=== PATIENT | female | born 1935 | race Caucasian/White ===

== ENCOUNTER 2021-09-15 03:42 | Inpatient (IN) | payer MEDICARE, SELFPAY ==
[2021-09-15] VITALS (25 sets, daily range): BP systolic 70–157; BP diastolic 50–88; PULSE 60–95; RESP 16–20; TEMP 36.3–37.1; O2SAT 90–97; BMI 26.2
--- NOTE | 2021-09-15 | IR_ITS ---
APPROVED REPORT Patient Location: Inpatient Level Vial Grinder: SILVINO Mcdermott RT (R) PROCEDURES Left heart catheterization Left ventriculogram Selective coronary angiogram Intravascular ultrasound of the LAD Drug-eluting stent deployment to the proximal and mid LAD INDICATION Acute non-ST elevation myocardial infarction, Abnormal echocardiogram, Large anterior wall defect, Coronary artery disease, MLA 3.6 mm??? involving the LAD Informed consent was obtained prior to the procedure. COMPLICATIONS None Estimated Blood Loss: Less than 10 mls TECHNIQUE One percent lidocaine used to anesthetize the right anterior aspect of the wrist. The right radial artery was accessed via the Seldinger technique. A 6 [place] sheath was placed in the right radial artery. 2.5 mg of verapamil, 800 mcg of nitroglycerin, 1mg Lidocaine and 5000 U Heparin were given through the arterial sheath. A trap catheter was used to perform left heart catheterization left ventriculogram and selective coronary angiogram. Patient had a large anterior wall motion abnormality. Based on calcified angiographically indeterminate proximal to mid LAD stenosis accompanying the anterior wall defect with positive troponins I was concerned an occult lesion was present. Therapeutic heparin was administered giving a therapeutic ACT and the guide catheter was switched out for a 6 [place] JL3 guide catheter. This was placed in the left main artery followed by a Choice PT extra-support wire. Intravascular interrogation demonstrated calcification with eccentric plaque and an MLA of 3.6 mm???. Given this mid hemodynamic significance the FFR wire was removed. Patient was not a candidate for FFR based on her pacemaker the acute coronary syndrome and evidence of systolic heart failure all of which were excluded and the same 1 and for him to trial. The gold standard for this patient would be the IVUS catheter. A 2.5 x 22 mm resolute Davey stent was placed in the proximal to mid LAD and deployed at 24 rosalia. A 2.75 x 8 mm noncompliant balloon was deployed at 24 rosalia in an area which was not fully dilated. At this point intravascular ultrasound probe was advanced which demonstrated the entire stent was slightly undersized. A 3 mm x 20 mm noncompliant balloon was then placed in the proximal mid and distal segment of the above stent deployed at 24 rosalia further post dilating and reducing the stenosis. Excellent angiographic results were obtained. FELICIA-3 flow was present before and after the procedure. At the end of the procedure the apparatus was removed the sheath was removed and hemostasis was achieved using TR banding patient was transferred to the postop holding in stable condition ANGIOGRAPHIC RESULTS The left main artery Normal The left anterior descending artery Has a proximal to mid vessel angiographically ambiguous area which appeared to be at least 50%. The remaining LAD is widely patent The circumflex artery Nondominant and has diffuse multiple 30 and 40% stenosis The right coronary artery Dominant with mild diffuse 10 to 20% luminal irregularities The FRY ventriculogram reveals Dilated ventricle with anterior apical akinesis estimate ejection fraction 25% The left ventricular end-diastolic pressure 30 mmHg IMPRESSION Coronary disease as described above accompanied by large anterior apical regional wall motion abnormality Severe coronary artery disease involving the proximal to mid LAD as described above with an MLA of 3.6 mm??? followed by successful stenting reducing the lesion to less than 10% Mild to moderate disease throughout the circumflex artery PLAN 1. Dual antiplatelet therapy combined with Eliquis for the next 30 days th
--- NOTE | 2021-09-15 03:52 | PC.NURSE ---
PT WAS DIRECT ADMIT VIA PER STRETCHER PER PER EMS [facility] @ [phone]
[2021-09-15 05:37] LABS: Coronavirus 19, PCR Not Detected (NotDetected); Influenza A, PCR Not Detected (NotDetected); Influenza B, PCR Not Detected (NotDetected)
[2021-09-15 05:41] LABS: Basophils # 0.1 K/mm3 (0-0.2); Basophils % 0.8 % (0.1-2.0); Eosinophils # 0.1 K/mm3 (0.0-0.4); Eosinophils % 0.9 % (0.1-12.0); Hematocrit 37.1 % (37.0-47.0); Hemoglobin 12.1 g/dL (12.2-16.2); Lymphocytes # 0.7 K/mm3 (0.7-4.5); Lymphocytes % 7.5 % (10-50); Mean Corpuscular HGB Conc 32.5 g/dL (31.8-35.4); Mean Corpuscular Hemoglobin 29.7 pg (27.0-31.2); Mean Corpuscular Volume 91.3 fl (81-99); Mean Platelet Volume 7.8 fl (7.4-10.4); Monocytes # 0.3 K/mm3 (0.1-1.0); Monocytes % 3.4 % (1.7-9.3); Neutrophils # 8.5 K/mm3 (1.8-7.8); Neutrophils % 87.3 % (37.0-80.0); Platelet Count 182 K/mm3 (142-424); Red Blood Count 4.07 M/mm3 (4.20-5.40); White Blood Count 9.7 K/mm3 (4.8-10.8)
[2021-09-15 05:44] LABS: MANUAL DIFFERENTIAL MANUAL DIFFERENTIAL (MANUAL DIFF)
[2021-09-15 05:46] LABS: Chloride 107 mmol/L (98-107); Sodium 133 mmol/L (136-145)
[2021-09-15 05:47] LABS: Potassium 3.7 mmoL/L (3.5-5.1)
[2021-09-15 05:49] LABS: Blood Urea Nitrogen 11 mg/dl (7-17); Creatinine Clearance Estimated 42 mL/min (50-200); Estimated Glomerular Filt Rate 79 ml/min (>60); GFR (African American) 96 ML/MIN (>60)
[2021-09-15 05:50] LABS: Anion Gap 2.7 mEq/L (5-15); Calcium 9.3 mg/dl (8.4-10.2); Carbon Dioxide 27 mmol/L (22.0-30.0); Glucose 119 mg/dl (74-100)
[2021-09-15 06:02] LABS: Troponin I 0.19 ng/ml (0.00-0.034)
--- NOTE | 2021-09-15 06:08 | PC.NURSE ---
Patient unable to remember names of medications, she states her son is able to bring list of meds.
[2021-09-15 06:50] LABS: Lymphocytes % 11 % (10-50); Monocytes % 4 % (2-9); Neutrophils % 85 % (42-76); Total Cells Counted 100
[2021-09-15 06:51] LABS: Platelet Estimate Normal; RBC Morphology Normal
--- NOTE | 2021-09-15 07:32 | HMH.PHAVTE ---
[facility] VTE Monitoring - Patient Demographics Admission date: 09/15/21 Report Date: 09/15/21 Time: 07:33 Allergies/Adverse Reactions: Patient Allergies No Known Drug Allergies Allergy (Verified 09/15/21 04:22) Height: 1.6 m Weight: 67.188 kg - VTE Risk Labs: VTE Related Lab Results Hgb 12.1 g/dL (12.2-16.2) L 09/15/21 05:30 Hct 37.1 % (37.0-47.0) 09/15/21 05:30 Plt Count 182 K/mm3 (142-424) 09/15/21 05:30 BUN 11 mg/dl (7-17) 09/15/21 05:30 Creatinine 0.70 mg/dl (0.52-1.04) 09/15/21 05:30 Estimated Creat Clear 42 mL/min (50-200) 09/15/21 05:30 Was VTE Risk Assessment Performed: Yes VTE Score: 2 VTE Risk Level: Very Low Risk Clinical Trial Participant: No - Prophylaxis VTE Prophylaxis Ordered?: Yes Types of VTE Prophylaxis: TEDS Knee High Location of Applied Device: Bilateral Lower Extremeties
--- NOTE | 2021-09-15 08:00 | CA_ITS ---
APPROVED REPORT EXAM: Comprehensive 2D, Doppler, and color-flow Echocardiogram Lead Pony Rider: Tawana Ceja RDCS Ht: 5 ft 3 in Wt: 148lbs BSA: 1.70 BP: 135/85 mmHg Indications: NSTEMI 2D Dimensions LVDd 1.59 cm F: 3.9 - 5.3 LA Volume 69.40 mL LA Volume Index 40.82 mL/m2 (M/F) 16-34 M-Mode Dimensions RVDd 2.25 cm (0.9-2.6) LA Diam 4.27 cm (1.9-4.0) LVDd 5.50 cm (3.5-5.7) Ao Diam 3.30 cm (2.0-3.7) LVDs 3.69 cm (3.5-5.7) IVSd 0.54 cm (0.6-1.1) PWd 0.60 cm (0.6-1.1) EF (Teich) 60.80% FS 32.90% EDV (Teich) 147.40 mL ESV (Teich) 57.80 mL LV Diastology E Decel Time 220.00 (160-240 msec) E/A Ratio 2.5 MED E' 4.10 (< 7 cm/sec) E'/MED E' Ratio 22.95 (>14) LAT E' 6.30 (<10 cm/sec) E/LAT E' Ratio 14.94 (>14) Mitral Valve MV E Max Dudley. 94.00 (40-130 cm/s) MV A Velocity 37.00 (40-130 cm/s) E/A Ratio 2.54 MV Decel. Time 220.00 (160-240 ms) MV PHT 64.00 ms Left Ventricle Technically difficult study because of the patient factors and poor acoustic windows. Left atrium is mildly enlarged, left ventricle is normal size, mild concentric left ventricular hypertrophy, estimated ejection fraction approximately 35%, there is moderate hypokinesis involving mid to distal septum, anterior and anterior apical wall. Diastolic parameters are inconclusive. Right Ventricle Right atrium and right ventricle are mildly enlarged with normal contractility. Aortic Valve Aortic valve is minimally thickened and fibrosed there is no aortic stenosis, there is trace aortic insufficiency. Mitral Valve Mitral valve leaflets are minimally thickened, there is mild mitral regurgitation. Tricuspid Valve Tricuspid valve leaflets are not well visualized, there is mild tricuspid regurgitation. Tricuspid rotation jet velocity is inadequate for calculation of the right ventricular systolic pressure. Pulmonic Valve Pulmonic valve is poorly visualized. Great Vessels Aortic root is normal size. Inferior vena cava is poorly visualized. Pericardium No significant pericardial effusion noted. Conclusion 1. Technically difficult study because of the patient factors and poor acoustic windows. 2. Biatrial enlargement, normal left ventricular size, mild concentric left ventricular hypertrophy, estimated ejection fraction 35% with segmental wall motion abnormality described above, diastolic parameters are inconclusive. 3. Trace aortic, mild mitral and tricuspid regurgitation. 4. No significant pericardial effusion. 5. Inferior vena cava is poorly visualized. Electronically signed by : Vinicius Medina MD 09/15/2021 13:17:28
--- NOTE | 2021-09-15 09:09 | HMH.HP ---
*Admission Date: 09/15/21 *Chief complaint: chest pain *History of present illness: This is an 86-year-old white female who presented to the emergency department at [facility]. She went to the hospital because of shortness of breath. Most of her history comes from her son who stays with her. The patient and her son state that she became profoundly short of breath through the night last night which was very unusual for her. He states that it was severe and she was kind of gasping to breathe. The patient states that she did not feel well and exertion worsen her symptoms. Nothing was really helping to improve her shortness of breath. It was associated with a little bit of anxiety. She denies any lower extremity edema. She denies any chest pain or pressure. She denies any fever, chills, nausea, vomiting, diarrhea, PND or orthopnea. The patient was transported to [facility] where she was found to have an elevated troponin. Dr. Sanchez was contacted and the patient was transferred here to [facility] for further evaluation and treatment of her elevated troponin. Of note she does see Dr. Whipple in [facility] for her cardiology care. She has known paroxysmal atrial fibrillation and recently underwent cardioversion. The patient is in sinus rhythm. She does take Eliquis for long-term anticoagulation. She denies a history of coronary disease. above per cardiology service When seen on rounds this morning the patient was having no active chest pain or dyspnea. She relayed having a restless night. The cardiology service has made plans to take her to the Plant [facility]/Shift Supervisor for further evaluation later today [facility] History Medical History: Denies:: Cancer, Diabetes Mellitus Type 1, Diabetes Mellitus Type 2, MRSA *Have you ever received a pneumonia vaccine?: Yes *Have you received a flu vaccine this season?: Yes Other Medical History: Reports: Arthritis, Cataracts Laterality Cases: Bilateral: Cataract Other Surgeries: Yes: Hysterectomy-Partial Amputation: No Fractures: No - *Social History Last grade of school completed: 11th or 12th Smoking Status: Never smoker Alcohol Intake: never *Occupational Status:: retired Household Members: children *Travel in the last 8 weeks: None Family Hx:: No significant family history Review of Systems - Constitutional Reports fatigue, Reports lack of energy - Eyes Denies change in vision - ENT Denies abnormal hearing - *Cardiovascular Reports chest pain, Reports chest pain at rest, Reports chest pain with activity, Reports shortness of breath - *Respiratory Reports shortness of breath, Denies cough - *Gastrointestinal Denies abdominal pain - *Genitourinary Denies difficulty urinating - *Musculoskeletal Reports muscle weakness - Integumentary/Breasts Denies yellowing of the skin - *Neurologic Denies behavioral changes - Psychiatric Denies behavioral changes - Endocrine Reports rapid, pounding, or irregular heartbeat - Hematologic/Lymphatic Reports easy bruising - Allergic/Immunologic Denies hives Meds Home Medications Medication Instructions Recorded Confirmed Type Alendronate Sodium [Fosamax 70mg 70 mg PO WEEKLY 09/15/21 09/15/21 History Tablet] Amiodarone HCl 200 mg PO DAILY 09/15/21 09/15/21 History Amiodarone HCl [Amiodarone 100mg 200 mg PO DAILY 09/15/21 09/15/21 History Tab] Apixaban [Eliquis 5mg Tablet] 5 mg PO BID 09/15/21 09/15/21 History Apixaban [Eliquis 5mg tab] 5 mg PO BID 09/15/21 09/15/21 History Fluoxetine HCl 20 mg PO DAILY 09/15/21 09/15/21 History Fluoxetine HCl [Prozac 20mg 20 mg PO DAILY 09/15/21 09/15/21 History Capsule] Fluticasone Propionate 1 spray NS DAILY 09/15/21 09/15/21 History Metoprolol Succinate [Metoprolol 25 mg PO DAILY 09/15/21 09/15/21 History Succinate 25mg Tablet*] Metoprolol Succinate [Metoprolol 25 mg PO DAILY 09/15/21 09/15/21 History Succinate 25mg Tablet*] S
--- NOTE | 2021-09-15 10:13 | HMH.PHAINT ---
home medication list verified using list from Dr. Jean's office and outpatient pharmacy
--- NOTE | 2021-09-15 10:20 | HMH.CNCARD ---
History of Present Illness Consult date: 09/15/21 Requesting physician: Nadeem Lares Consult reason: shortness of breath Chief complaint: SOA History of present illness: This is an 86-year-old white female who presented to the emergency department at [facility]. She went to the hospital because of shortness of breath. Most of her history comes from her son who stays with her. The patient and her son state that she became profoundly short of breath through the night last night which was very unusual for her. He states that it was severe and she was kind of gasping to breathe. The patient states that she did not feel well and exertion worsen her symptoms. Nothing was really helping to improve her shortness of breath. It was associated with a little bit of anxiety. She denies any lower extremity edema. She denies any chest pain or pressure. She denies any fever, chills, nausea, vomiting, diarrhea, PND or orthopnea. The patient was transported to [facility] where she was found to have an elevated troponin. Dr. Sanchez was contacted and the patient was transferred here to [facility] for further evaluation and treatment of her elevated troponin. Of note she does see Dr. Whipple in [facility] for her cardiology care. She has known paroxysmal atrial fibrillation and recently underwent cardioversion. The patient is in sinus rhythm. She does take Eliquis for long-term anticoagulation. She denies a history of coronary disease. [facility] History I have reviewed the patient's past medical history: Yes Medical History: Reports:: Atrial Fibrillation, Hyperlipidemia, Hypertension Denies:: Cancer, Coronary Artery Disease, Diabetes Mellitus Type 2, MRSA *Have you ever received a pneumonia vaccine?: Yes *Have you received a flu vaccine this season?: Yes Other Medical History: Reports: Arthritis, Cataracts Laterality Cases: Bilateral: Cataract Other Surgeries: Yes: Hysterectomy-Partial, Pacemaker Amputation: No Fractures: No Comment: Cardioversion x2 - *Social History Last grade of school completed: 11th or 12th Smoking Status: Never smoker Alcohol Intake: never *Occupational Status:: retired Household Members: children *Travel in the last 8 weeks: None Family Hx:: No significant family history Meds Home Medications Medication Instructions Recorded Confirmed Type Alendronate Sodium [Fosamax 70mg 70 mg PO WEEKLY 09/15/21 09/15/21 History Tablet] Amiodarone HCl 200 mg PO DAILY 09/15/21 09/15/21 History Amiodarone HCl [Amiodarone 100mg 200 mg PO DAILY 09/15/21 09/15/21 History Tab] Apixaban [Eliquis 5mg Tablet] 5 mg PO BID 09/15/21 09/15/21 History Apixaban [Eliquis 5mg tab] 5 mg PO BID 09/15/21 09/15/21 History Fluoxetine HCl 20 mg PO DAILY 09/15/21 09/15/21 History Fluoxetine HCl [Prozac 20mg 20 mg PO DAILY 09/15/21 09/15/21 History Capsule] Fluticasone Propionate 1 spray NS DAILY 09/15/21 09/15/21 History Metoprolol Succinate [Metoprolol 25 mg PO DAILY 09/15/21 09/15/21 History Succinate 25mg Tablet*] Metoprolol Succinate [Metoprolol 25 mg PO DAILY 09/15/21 09/15/21 History Succinate 25mg Tablet*] Simvastatin 40 mg PO DAILY 09/15/21 09/15/21 History Simvastatin [Zocor 40mg] 40 mg PO HS 09/15/21 09/15/21 History Allergies Allergy/AdvReac Type Severity Reaction Status Date / Time No Known Drug Allergies Allergy Verified 09/15/21 04: Exam Vital signs and Labs for Last 24 Hours: Temp Pulse Resp BP Pulse Ox 97.7 F 79 18 157/87 H 97 09/15/21 08:00 09/15/21 08:00 09/15/21 08:00 09/15/21 08:00 09/15/21 08:00 Laboratory Results - last 24 hr 09/15/21 05:30: SARS-CoV-2 (PCR) Not detected, Influenza A Untype (PCR) Not detected, Influenza Type B (PCR) Not detected 09/15/21 05:30: WBC 9.7, RBC 4.07 L, Hgb 12.1 L, Hct 37.1, MCV 91.3, MCH 29.7, MCHC 32.5, RDW 16.0, Plt Count 182, MPV 7.8, Neut % (Auto) 87.3 H, Lymph % (Auto) 7.5 L, [place] % (Auto) 3.
[2021-09-15 14:40] LABS: CATHL Activated Clotting Time 287 SEC (74-125)
--- NOTE | 2021-09-15 15:16 | PC.WOUNDNOTE ---
stage II left buttock
--- NOTE | 2021-09-15 18:29 | XR_ITS ---
PROCEDURE INFORMATION: Exam: XR Chest Exam date and time: 09/15/2021 6:33 PM Age: 86 years old Clinical indication: Pain; Chest pressure; Prior surgery; Surgery date: Post-operative (0-2 days); Surgery type: Heart cath today; Additional info: Chest pain TECHNIQUE: Imaging protocol: XR of the chest. Portable AP exam 6:33 p.m. Views: 1 view. COMPARISON: No relevant prior studies available. FINDINGS: Lungs: Slight hyperinflation, mild flattening of diaphragms. Mild lower pulmonary interstitial prominence which may be chronic rather than acute in nature. Slight peribronchial thickening. Pulmonary vessels do not appear significantly congested. No focal consolidation. Pleural spaces: Blunting of the costophrenic angles could be small layering pleural effusions or chronic pleural scarring, no older exams are available to compare. No pneumothorax. Heart/Mediastinum: Enlarged cardiac silhouette. Dual lead right subclavian cardiac pacemaker. Vasculature: Calcified plaques in the aortic arch. Bones/joints: Osteopenia. Spinal degenerative changes. IMPRESSION: 1. Cardiomegaly. 2. Pulmonary hyperinflation, interstitial scarring. No focal consolidation. 3. Blunting of costophrenic angles could be chronic pleural scarring, versus trace pleural effusions. 4. Additional nonemergency and chronic findings as above.
--- NOTE | 2021-09-15 19:28 | PC.NURSE ---
PT IS RESTING IN BED. PT ARRIVED BACK TO THE FLOOR FROM THE HEART CATH EARLY THIS AFTERNOON. PT WAS DOING WELL UNTIL 184 PT GOT UP TO THE BSC WITH 1 ASSIST AND WHEN GETTING BACK TO BED PT VOMITED UP ALL HER SUPPER AND STATED I FEEL HOT . PT WAS DIAPHORETIC AND PALE. VSS= BP 71/47. HR 71. RESPIRATIONS 24. OXYGEN 95%. NOTIFIED . ORDERED 500 ML NS IVF BOLUS. PT WAS MEDICATED WITH ZOFRAN FOR NAUSEA.
--- NOTE | 2021-09-15 20:33 | PC.NURSE ---
Spoke with , patients blood pressure was maintaining 78/50 after 500ml NS bolus. Received orders to start Levophed gtt titrate systolic >90, Map >65. Orders carried out.
[2021-09-15 21:14] LABS: Basophils % 0.1 % (0.1-2.0); Eosinophils % 0.2 % (0.1-12.0); Hematocrit 38.5 % (37.0-47.0); Hemoglobin 12.4 g/dL (12.2-16.2); Lymphocytes # 1.3 K/mm3 (0.7-4.5); Lymphocytes % 8.1 % (10-50); Mean Corpuscular HGB Conc 32.1 g/dL (31.8-35.4); Mean Corpuscular Hemoglobin 29.4 pg (27.0-31.2); Mean Corpuscular Volume 91.6 fl (81-99); Mean Platelet Volume 8.7 fl (7.4-10.4); Monocytes # 0.7 K/mm3 (0.1-1.0); Monocytes % 4.1 % (1.7-9.3); Neutrophils # 14.4 K/mm3 (1.8-7.8); Neutrophils % 87.5 % (37.0-80.0); Platelet Count 196 K/mm3 (142-424); Red Blood Count 4.21 M/mm3 (4.20-5.40); White Blood Count 16.5 K/mm3 (4.8-10.8)
[2021-09-15 21:22] LABS: MANUAL DIFFERENTIAL MANUAL DIFFERENTIAL (MANUAL DIFF)
[2021-09-15 21:57] LABS: Lymphocytes % 8 % (10-50); Neutrophils % 84 % (42-76); Platelet Estimate Normal; RBC Morphology Normal; Total Cells Counted 100
[2021-09-16] VITALS (14 sets, daily range): BP systolic 96–137; BP diastolic 47–84; PULSE 60–113; RESP 14–20; TEMP 35.9–37.6; O2SAT 90–100; BMI 26.1
--- NOTE | 2021-09-16 05:49 | PC.NURSE ---
Levo gtt turned off at 05:00. Patient's b/p has remained stable with systolic >90 and MAP 65. Currently B/P is 113/66, HR-81. Patient is resting comfortably in bed, bed alarm on and working. Patient is wearing a brief, but also is a x1 assist to BSC. Patient remains A/O x3. Has rested very little this shift. Has had x1 episode of emesis, patient states she felt better, medicated per JUL. Patient had 200ml in output this shift. Right radial cath site is C/D/I.
[2021-09-16 08:00] LABS: Basophils % 0.2 % (0.1-2.0); Eosinophils # 0.1 K/mm3 (0.0-0.4); Eosinophils % 0.4 % (0.1-12.0); Hematocrit 38.6 % (37.0-47.0); Hemoglobin 12.6 g/dL (12.2-16.2); Lymphocytes # 0.8 K/mm3 (0.7-4.5); Mean Corpuscular HGB Conc 32.7 g/dL (31.8-35.4); Mean Corpuscular Volume 91.8 fl (81-99); Mean Platelet Volume 8.5 fl (7.4-10.4); Monocytes # 0.3 K/mm3 (0.1-1.0); Monocytes % 2.3 % (1.7-9.3); Neutrophils # 10.6 K/mm3 (1.8-7.8); Neutrophils % 90.1 % (37.0-80.0); Platelet Count 193 K/mm3 (142-424); Red Blood Count 4.21 M/mm3 (4.20-5.40); Red Cell Distribution Width 16.1 % (11.5-17.5); White Blood Count 11.8 K/mm3 (4.8-10.8)
[2021-09-16 08:06] LABS: MANUAL DIFFERENTIAL MANUAL DIFFERENTIAL (MANUAL DIFF)
[2021-09-16 10:18] LABS: Alanine Aminotransferase 488 U/L (12-78); Albumin Level 3.7 g/dl (3.5-5.0); Alkaline Phosphatase 160 U/L (38-126); Anion Gap 14.4 mEq/L (5-15); Aspartate Amino Transferase 618 U/L (14-36); Bilirubin,Direct 0.2 mg/dl (0.0-0.4); Bilirubin,Indirect 0.5 mg/dL (0.0-0.9); Bilirubin,Total 0.7 mg/dl (0.2-1.3); Bilirubin,Unconjugated 0.5 mg/dL (0.0-1.1); Blood Urea Nitrogen 19 mg/dl (7-17); Calcium 8.6 mg/dl (8.4-10.2); Carbon Dioxide 25 mmol/L (22.0-30.0); Chloride 100 mmol/L (98-107); Chol/HDL Ratio 1.8 (1-3.5); Cholesterol 134 mg/dl (140-200); Creatinine Clearance Estimated 38 mL/min (50-200); Estimated Glomerular Filt Rate 47 ml/min (>60); GFR (African American) 57 ML/MIN (>60); Glucose 181 mg/dl (74-100); HDL Cholesterol 76 mg/dl (40-60); Potassium 3.4 mmoL/L (3.5-5.1); Sodium 136 mmol/L (136-145); Total Protein,Serum 5.8 g/dl (6.3-8.2); Triglycerides 110 mg/dl (30-150); VLDL Cholesterol 22 mg/dL (0-40)
--- NOTE | 2021-09-16 10:43 | PC.NURSE ---
PT GOT UP TO AMBULATE IN THE HALLWAY AND STATED SHE FELT FINE AFTERWARDS. BP AFTER AMBULATING 102/54. HR 62. RESPIRATIONS 20. OXYGEN 95% ON ROOM AIR. ORTHOSTATIC BP LYING 103/61 SITTING 110/57 STANDING 100/53
[2021-09-16 10:52] LABS: Direct LDL Cholesterol < 30.00 mg/dL (100-129)
--- NOTE | 2021-09-16 11:00 | HMH.ACPN2 ---
Internal Medicine - PN: Subj *Date: 09/16/21 *Time: 11:01 Interval history: pt feels better today but has low bp- discussed with dr lopez- labs reviewed Exam Vital signs and Labs for Last 24 Hours: Temp Pulse Resp BP Pulse Ox 97.6 F 74 20 100/53 L 94 L 09/16/21 03:29 09/16/21 10:00 09/16/21 10:00 09/16/21 10:00 09/16/21 10:00 Laboratory Results - last 24 hr 09/15/21 13:59: Activated Clotting Time 287 H* 09/15/21 21:08: WBC 16.5 H D, RBC 4.21, Hgb 12.4, Hct 38.5, MCV 91.6, MCH 29.4, MCHC 32.1, RDW 15.0, Plt Count 196, MPV 8.7, Neut % (Auto) 87.5 H, Lymph % (Auto) 8.1 L, Rhea % (Auto) 4.1, Eos % (Auto) 0.2, Baso % (Auto) 0.1, Neut # (Auto) 14.4 H, Lymph # (Auto) 1.3, Rhea # (Auto) 0.7, Eos # (Auto) 0.0, Baso # (Auto) 0.0, Total Counted 100, Neutrophils % (Manual) 84 H, Band Neutrophils % 8.0, Lymphocytes % (Manual) 8 L, Platelet Estimate Normal, RBC Morphology Normal 09/16/21 07:51: WBC 11.8 H D, RBC 4.21, Hgb 12.6, Hct 38.6, MCV 91.8, MCH 30.0, MCHC 32.7, RDW 16.1, Plt Count 193, MPV 8.5, Neut % (Auto) 90.1 H, Lymph % (Auto) 7.0 L, Rhea % (Auto) 2.3, Eos % (Auto) 0.4, Baso % (Auto) 0.2, Neut # (Auto) 10.6 H, Lymph # (Auto) 0.8, Rhea # (Auto) 0.3, Eos # (Auto) 0.1, Baso # (Auto) 0.0 09/16/21 07:51: Sodium 136, Potassium 3.4 L, Chloride 100, Carbon Dioxide 25, Anion Gap 14.4, BUN 19 H D, Creatinine 1.10 H D, Estimated Creat Clear 38, Estimated GFR 47 L, Est GFR ( Amer) 57 L D, Glucose 181 H, Calcium 8.6, Total Bilirubin 0.7, Direct Bilirubin 0.2, Conjugated Bilirubin 0.0, Indirect Bilirubin 0.5, Unconjugated Bilirubin 0.5, AST 618 H*, ALT 488 H*, Alkaline Phosphatase 160 H, Total Protein 5.8 L, Albumin 3.7, Triglycerides 110, Cholesterol 134 L, LDL Cholesterol Direct < 30.00 L, VLDL Cholesterol 22, HDL Cholesterol 76 H, Cholesterol/HDL Ratio 1.8 I & O for Last 24 hours: Intake & Output 09/13/21 09/14/21 09/15/21 09/16/21 11:59 11:59 11:59 11:59 Intake Total 224 / 224 Output Total 1200 / 1200 Balance -976 / -976 Weight 148 lb 2 oz 147 lb 7 oz - Constitutional no acute distress - *Routine HEENT Exam Head: Present: normocephalic Eye: Present: EOMI, PERRL ENT: Present: mucous membranes dry - *Routine Neck Exam Absent: JVD - *Routine Respiratory Exam Present: decreased breath sounds - *Routine Cardiovascular Exam Present: RRR, murmur, S4 - *Routine Abdominal Exam Present: soft - *Routine Extremities Exam Absent: Yaneth's sign - *Routine Skin Exam Present: intact - *Routine Neurological Exam Present: alert, CN II-XII intact - Routine Psychiatric Exam Present: normal affect Assessment and Plan (1) Abnormal EKG Status: Acute Category: Medical Code(s): R94.31 - Abnormal electrocardiogram [ECG] [EKG] (2) Atypical angina Status: Acute Category: Medical Code(s): I20.8 - Other forms of angina pectoris (3) Elevated troponin Status: Acute Category: Medical Code(s): R77.8 - Other specified abnormalities of plasma proteins (4) Non-STEMI (non-ST elevated myocardial infarction) Status: Acute Category: Medical Code(s): I21.4 - Non-ST elevation (NSTEMI) myocardial infarction (5) Shortness of breath Status: Acute Category: Medical Code(s): R06.02 - Shortness of breath (6) Hypertension Status: Chronic Qualifiers: Hypertension type: primary hypertension Qualified Code(s): I10 - Essential (primary) hypertension Category: Medical Code(s): I10 - Essential (primary) hypertension (7) Paroxysmal atrial fibrillation Status: Chronic Category: Medical Code(s): I48.0 - Paroxysmal atrial fibrillation
[2021-09-16 12:39] LABS: Lymphocytes % 9 % (10-50); Monocytes % 2 % (2-9); Neutrophils % 89 % (42-76); Total Cells Counted 100
[2021-09-16 12:40] LABS: Nucleated Red Blood Cells 1; Platelet Estimate Normal; RBC Morphology Normal
--- NOTE | 2021-09-16 15:31 | PC.NURSE ---
Addendum entered by Cindy Pérez RN 09/16/21 16:45: NOTIFIED ABOUT PT'S HR ON TELEMETRY 120-130'S. EKG COMPLETED. BISOPROLOL 5 MG DAILY ORDERED. CARVEDILOL DC'D. Original Note: PT IS RESTING IN BED. ALERT AND ORIENTED X4. PT CONTINUES TO HAVE LOW BLOOD PRESSURE BUT HAS BEEN ASYMPTOMATIC. CALLED AND STATED THAT HE TALKED TO CARDIOLOGY AND PT'S ENTRESTO AND CARVEDILOL NEEDED TO BE ON HOLD FOR NOW AND PT WILL NEED TO STAY IN THE HOSPITAL AT LEAST TILL SATURDAY. FAMILY AND PT WERE AGREEABLE TO STAYING. PT HAS BEEN PACED ON TELEMETRY. LUNG SOUNDS CLEAR. ABDOMEN SOFT/NON TENDER WITH ACTIVE BOWEL SOUNDS. PT AMBULATED IN THE [facility] THIS SHIFT. DRESSING TO RT RADIAL CATH SITE C/D/I. EATING AND DRINKING WELL. WILL CONTINUE TO MONITOR.
--- NOTE | 2021-09-16 16:35 | ECG_ITS ---
APPROVED REPORT Exam: Resting ECG HR:117 bpm ECG Measurements Heart Rate 117 AXES QRSd 88 QRS 4 QT 374 T 159 QTc 444 Conclusion ATRIAL FIBRILLATION WITH RAPID VENTRICULAR RESPONSE WITH ABERRANT CONDUCTION OR VENTRICULAR PREMATURE COMPLEXES POSSIBLE RIGHT VENTRICULAR CONDUCTION DELAY [RSR (QR) IN V1/V2] ST DEVIATION AND MODERATE T-WAVE ABNORMALITY, CONSIDER LATERAL ISCHEMIA [-0.1+ mV T-WAVE IN I/aVL/V5/V6] ABNORMAL ECG UNCONFIRMED REPORT Electronically signed by : Henok Hardy MD 09/26/2021 21:13:37
[2021-09-17] VITALS (7 sets, daily range): BP systolic 92–129; BP diastolic 55–75; PULSE 90–111; RESP 16–18; TEMP 36.4–36.9; O2SAT 91–98; BMI 25.9
--- NOTE | 2021-09-17 05:06 | PC.NURSE ---
Pt rested well this shift. HR has been ranging from 100-120's. Pt has voiced no c/o of SOA, N/V this shift. Pt has voiced x1 of pain in shoulders, admin medication per JUL. Pt can ambulate to bathroom with standby assist and tolerates well. Pt has remained A/O x3. Remains on RA with O2 sat >90%. Placed 2L NC on patient for a few hours, while sleeping. Right radial cath site is C/D/I.
[2021-09-17 09:21] LABS: Basophils % 0.3 % (0.1-2.0); Eosinophils % 0.3 % (0.1-12.0); Hematocrit 34.5 % (37.0-47.0); Hemoglobin 11.3 g/dL (12.2-16.2); Lymphocytes # 0.7 K/mm3 (0.7-4.5); Mean Corpuscular HGB Conc 32.6 g/dL (31.8-35.4); Mean Corpuscular Hemoglobin 29.9 pg (27.0-31.2); Mean Corpuscular Volume 91.7 fl (81-99); Monocytes # 0.5 K/mm3 (0.1-1.0); Monocytes % 4.8 % (1.7-9.3); Neutrophils % 87.4 % (37.0-80.0); Platelet Count 172 K/mm3 (142-424); Red Blood Count 3.77 M/mm3 (4.20-5.40); Red Cell Distribution Width 16.3 % (11.5-17.5); White Blood Count 10.2 K/mm3 (4.8-10.8)
[2021-09-17 09:23] LABS: MANUAL DIFFERENTIAL MANUAL DIFFERENTIAL (MANUAL DIFF)
[2021-09-17 09:30] LABS: Alanine Aminotransferase 344 U/L (12-78); Albumin Level 3.2 g/dl (3.5-5.0); Alkaline Phosphatase 108 U/L (38-126); Anion Gap 10.6 mEq/L (5-15); Aspartate Amino Transferase 181 U/L (14-36); Bilirubin,Indirect 0.7 mg/dL (0.0-0.9); Bilirubin,Total 0.7 mg/dl (0.2-1.3); Bilirubin,Unconjugated 0.7 mg/dL (0.0-1.1); Blood Urea Nitrogen 19 mg/dl (7-17); Calcium 8.3 mg/dl (8.4-10.2); Carbon Dioxide 27 mmol/L (22.0-30.0); Chloride 99 mmol/L (98-107); Creatinine Clearance Estimated 42 mL/min (50-200); Estimated Glomerular Filt Rate 59 ml/min (>60); GFR (African American) 72 ML/MIN (>60); Glucose 153 mg/dl (74-100); Sodium 134 mmol/L (136-145); Total Protein,Serum 5.6 g/dl (6.3-8.2)
[2021-09-17 09:45] LABS: Potassium 2.6 mmoL/L (3.5-5.1)
--- NOTE | 2021-09-17 10:23 | P.PN_ITS ---
Internal Medicine - PN: Subj *Date: 09/18/21 *Time: 13:10 Interval history: doing well but had episode of inc hr last pm- no pain Exam Vital signs and Labs for Last 24 Hours: Temp Pulse Resp BP Pulse Ox 98.2 F 93 H 17 102/63 L 93 L 09/17/21 08:00 09/17/21 08:00 09/17/21 08:00 09/17/21 08:00 09/17/21 08:00 Laboratory Results - last 24 hr 09/16/21 07:51: Total Counted 100, Neutrophils % (Manual) 89 H, Lymphocytes % (Manual) 9 L, Monocytes % (Manual) 2, Nucleated RBCs 1, Platelet Estimate Normal, RBC Morphology Normal 09/16/21 07:51: LDL Cholesterol Direct < 30.00 L 09/17/21 09:00: WBC 10.2, RBC 3.77 L, Hgb 11.3 L, Hct 34.5 L, MCV 91.7, MCH 29.9, MCHC 32.6, RDW 16.3, Plt Count 172, MPV 9.0, Neut % (Auto) 87.4 H, Lymph % (Auto) 7.0 L, [place] % (Auto) 4.8, Eos % (Auto) 0.3, Baso % (Auto) 0.3, Neut # (Auto) 9.0 H, Lymph # (Auto) 0.7, [place] # (Auto) 0.5, Eos # (Auto) 0.0, Baso # (Auto) 0.0 09/17/21 09:00: Sodium 134 L, Potassium 2.6 L* D, Chloride 99, Carbon Dioxide 27, Anion Gap 10.6, BUN 19 H, Creatinine 0.90, Estimated Creat Clear 42, Estimated GFR 59, Est GFR ( Amer) 72 D, Glucose 153 H, Calcium 8.3 L, Total Bilirubin 0.7, Direct Bilirubin 0.0, Conjugated Bilirubin 0.0, Indirect Bilirubin 0.7, Unconjugated Bilirubin 0.7, AST 181 H D, ALT 344 H*, Alkaline Phosphatase 108, Total Protein 5.6 L, Albumin 3.2 L D I & O for Last 24 hours: Intake & Output 09/14/21 09/15/21 09/16/21 09/17/21 11:59 11:59 11:59 11:59 Intake Total 224 / 224 840 / 840 Output Total 1200 / 1200 Balance -976 / -976 840 / 840 Weight 148 lb 2 oz 147 lb 7 oz 146 lb 8 oz - Constitutional no acute distress - *Routine HEENT Exam Head: Present: normocephalic Eye: Present: EOMI, PERRL ENT: Present: mucous membranes dry - *Routine Neck Exam Absent: JVD - *Routine Respiratory Exam Present: decreased breath sounds - *Routine Cardiovascular Exam Present: irregular rhythm - *Routine Abdominal Exam Present: soft - *Routine Extremities Exam Absent: calf tenderness - *Routine Skin Exam Present: intact - *Routine Neurological Exam Present: alert, CN II-XII intact - Routine Psychiatric Exam Present: cooperative Assessment and Plan (1) Abnormal EKG Status: Acute Category: Medical Code(s): R94.31 - Abnormal electrocardiogram [ECG] [EKG] (2) Atypical angina Status: Acute Category: Medical Code(s): I20.8 - Other forms of angina pecto ris (3) Elevated troponin Status: Acute Category: Medical Code(s): R77.8 - Other specified abnormalities of plasma proteins (4) Non-STEMI (non-ST elevated myocardial infarction) Status: Acute Category: Medical Code(s): I21.4 - Non-ST elevation (NSTEMI) myocardial infarction (5) Shortness of breath Status: Acute Category: Medical Code(s): R06.02 - Shortness of breath (6) Hypertension Status: Chronic Qualifiers: Hypertension type: primary hypertension Qualified Code(s): I10 - Essential (primary) hypertension Category: Medical Code(s): I10 - Essential (primary) hypertension (7) Paroxysmal atrial fibrillation Status: Chronic Category: Medical Code(s): I48.0 - Paroxysmal atrial fibrillation
[2021-09-17 10:28] LABS: Lymphocytes % 9 % (10-50); Monocytes % 7 % (2-9); Neutrophils % 84 % (42-76); Total Cells Counted 100
[2021-09-17 10:29] LABS: Platelet Estimate Normal; RBC Morphology Normal
--- NOTE | 2021-09-17 17:20 | PC.NURSE ---
PT IS SITTING UP ON THE SOB EATING DINNER AT THIS TIME. ALERT AND ORIENTED X4. PT TOLERATED SITTING UP IN THE CHAIR FOR SEVERAL HOURS THIS SHIFT. AMBULATED IN THE JUAREZ. AFIB ON TELEMETRY. VSS. LUNG SOUNDS CLEAR. ABDOMEN SOFT/NON TENDER WITH ACTIVE BOWEL SOUNDS. NO SWELLING NOTED TO BLE. WILL CONTINUE TO MONITOR.
[2021-09-18] VITALS: BP 107/53; PULSE 100; PULSE 101; RESP 16; TEMP 36.7; O2SAT 96
[2021-09-18 04:00] VITALS: BP 92/49; PULSE 100; RESP 17; TEMP 36.6; O2SAT 93
--- NOTE | 2021-09-18 04:28 | PC.NURSE ---
Patient has rested well this shift. Pt ambulated in the iqbal x1 and tolerated well. Pt remains on RA with O2 sats >90%. Pt has voiced no c/o of SOA or pain thus far in shift. HR has maintained 100-110. Bed safety on. Right radial cath site dressing remains C/D/I.
[2021-09-18 05:00] VITALS: BMI 24.7
[2021-09-18 08:00] VITALS: BP 91/47; PULSE 100; PULSE 89; RESP 14; TEMP 36.4; O2SAT 94
[2021-09-18 08:18] LABS: Basophils # 0.1 K/mm3 (0-0.2); Eosinophils # 0.1 K/mm3 (0.0-0.4); Eosinophils % 0.6 % (0.1-12.0); Hematocrit 32.8 % (37.0-47.0); Hemoglobin 11.1 g/dL (12.2-16.2); Lymphocytes # 0.9 K/mm3 (0.7-4.5); Lymphocytes % 11.2 % (10-50); Mean Corpuscular HGB Conc 33.7 g/dL (31.8-35.4); Mean Corpuscular Hemoglobin 30.7 pg (27.0-31.2); Mean Platelet Volume 8.9 fl (7.4-10.4); Monocytes # 0.5 K/mm3 (0.1-1.0); Neutrophils # 6.5 K/mm3 (1.8-7.8); Neutrophils % 81.2 % (37.0-80.0); Platelet Count 172 K/mm3 (142-424); Red Blood Count 3.61 M/mm3 (4.20-5.40); Red Cell Distribution Width 16.2 % (11.5-17.5)
--- NOTE | 2021-09-18 08:22 | HMH.PNCARD ---
Subjective Date: 09/18/21 Time: 08:22 Principal diagnosis: Non-ST elevation AL Interval history: 86-year-old white female in bed in no acute distress. She denies any chest pain, pressure or tightness but is just not feeling well. Telemetry shows continued atrial fibrillation with rate around 100 bpm. Patient is on Eliquis. Son relates that she has been cardioverted 3 times with the most recent 2 weeks ago prior to admission. She has been on amiodarone to try and help maintain sinus rhythm with previous amiodarone use transiently. She did receive stents to her LAD last week and remains on aspirin and Plavix. Potassium yesterday noted to be 2.6 Ejection fraction 25% but patient is not a LifeVest candidate due to her hard of hearing status. Due to low blood pressure her Entresto has been held and Coreg was switched to bisoprolol over the weekend to try and improve heart rate control. Exam Vital signs and Labs for Last 24 Hours: Temp Pulse Resp BP Pulse Ox 97.9 F 100 H 17 92/49 L 93 L 09/18/21 04:00 09/18/21 04:00 09/18/21 04:00 09/18/21 04:00 09/18/21 04:00 Laboratory Results - last 24 hr 09/17/21 09:00: WBC 10.2, RBC 3.77 L, Hgb 11.3 L, Hct 34.5 L, MCV 91.7, MCH 29.9, MCHC 32.6, RDW 16.3, Plt Count 172, MPV 9.0, Neut % (Auto) 87.4 H, Lymph % (Auto) 7.0 L, [place] % (Auto) 4.8, Eos % (Auto) 0.3, Baso % (Auto) 0.3, Neut # (Auto) 9.0 H, Lymph # (Auto) 0.7, [place] # (Auto) 0.5, Eos # (Auto) 0.0, Baso # (Auto) 0.0, Total Counted 100, Neutrophils % (Manual) 84 H, Lymphocytes % (Manual) 9 L, Monocytes % (Manual) 7, Platelet Estimate Normal, RBC Morphology Normal 09/17/21 09:00: Sodium 134 L, Potassium 2.6 L* D, Chloride 99, Carbon Dioxide 27, Anion Gap 10.6, BUN 19 H, Creatinine 0.90, Estimated Creat Clear 42, Estimated GFR 59, Est GFR ( Amer) 72 D, Glucose 153 H, Calcium 8.3 L, Total Bilirubin 0.7, Direct Bilirubin 0.0, Conjugated Bilirubin 0.0, Indirect Bilirubin 0.7, Unconjugated Bilirubin 0.7, AST 181 H D, ALT 344 H*, Alkaline Phosphatase 108, Total Protein 5.6 L, Albumin 3.2 L D 09/18/21 07:37: WBC 8.0, RBC 3.61 L, Hgb 11.1 L, Hct 32.8 L, MCV 91.0, MCH 30.7, MCHC 33.7, RDW 16.2, Plt Count 172, MPV 8.9, Neut % (Auto) 81.2 H, Lymph % (Auto) 11.2, [place] % (Auto) 6.0, Eos % (Auto) 0.6, Baso % (Auto) 1.0, Neut # (Auto) 6.5, Lymph # (Auto) 0.9, [place] # (Auto) 0.5, Eos # (Auto) 0.1, Baso # (Auto) 0.1 I & O for Last 24 hours: Intake & Output 09/15/21 09/16/21 09/17/21 09/18/21 11:59 11:59 11:59 11:59 Intake Total 224 / 224 840 / 840 120 / 120 Output Total 1200 / 1200 Balance -976 / -976 840 / 840 120 / 120 Weight 148 lb 2 oz 147 lb 7 oz 146 lb 8 oz 139 lb 12.8 oz - Constitutional no acute distress - *Routine Respiratory Exam Present: CTA bilaterally - *Routine Cardiovascular Exam Present: irregularly irregular - *Routine Extremities Exam Absent: cyanosis, clubbing, edema - *Routine Neurological Exam Present: alert, oriented X3 Progress Note: A&P (1) Abnormal EKG Status: Acute (2) Atypical angina Status: Acute (3) Elevated troponin Status: Acute (4) Non-STEMI (non-ST elevated myocardial infarction) Status: Acute (5) Shortness of breath Status: Acute (6) Hypertension Status: Chronic (7) Paroxysmal atrial fibrillation Status: Chronic Assessment and Plan for All Diagnoses:: 1. Ischemic cardiomyopathy with EF 25%, patient is on bisoprolol at this time. Entresto has been held due to low blood pressure. Not a candidate for LifeVest. 2. CAD with non-STEMI this admission with subsequent stent placement to LAD, continue aspirin and Plavix. 3. Atrial fibrillation, recurrent with mild tachycardia, will increase bisoprolol to 5 mg twice daily to try obtain rate control since patient has failed to maintain sinus rhythm while on amiodarone. 4. Pacemaker in situ, followed by Dr. Arrieta in [place] 5. Hypokalemia, will check magnesium level today and continue potassium supplement
[2021-09-18 08:32] LABS: Anion Gap 8.6 mEq/L (5-15); Blood Urea Nitrogen 17 mg/dl (7-17); Calcium 8.1 mg/dl (8.4-10.2); Carbon Dioxide 28 mmol/L (22.0-30.0); Chloride 102 mmol/L (98-107); Creatinine Clearance Estimated 40 mL/min (50-200); Estimated Glomerular Filt Rate 68 ml/min (>60); GFR (African American) 82 ML/MIN (>60); Glucose 110 mg/dl (74-100); Potassium 3.6 mmoL/L (3.5-5.1); Sodium 135 mmol/L (136-145)
--- NOTE | 2021-09-18 09:02 | HMH.ACPN2 ---
Internal Medicine - PN: Subj *Date: 09/18/21 *Time: 08:00 Interval history: pt states she feels well, still has not had a bm Exam Vital signs and Labs for Last 24 Hours: Temp Pulse Resp BP Pulse Ox 97.9 F 100 H 17 92/49 L 93 L 09/18/21 04:00 09/18/21 04:00 09/18/21 04:00 09/18/21 04:00 09/18/21 04:00 Laboratory Results - last 24 hr 09/17/21 09:00: WBC 10.2, RBC 3.77 L, Hgb 11.3 L, Hct 34.5 L, MCV 91.7, MCH 29.9, MCHC 32.6, RDW 16.3, Plt Count 172, MPV 9.0, Neut % (Auto) 87.4 H, Lymph % (Auto) 7.0 L, [place] % (Auto) 4.8, Eos % (Auto) 0.3, Baso % (Auto) 0.3, Neut # (Auto) 9.0 H, Lymph # (Auto) 0.7, [place] # (Auto) 0.5, Eos # (Auto) 0.0, Baso # (Auto) 0.0, Total Counted 100, Neutrophils % (Manual) 84 H, Lymphocytes % (Manual) 9 L, Monocytes % (Manual) 7, Platelet Estimate Normal, RBC Morphology Normal 09/17/21 09:00: Sodium 134 L, Potassium 2.6 L* D, Chloride 99, Carbon Dioxide 27, Anion Gap 10.6, BUN 19 H, Creatinine 0.90, Estimated Creat Clear 42, Estimated GFR 59, Est GFR ( Amer) 72 D, Glucose 153 H, Calcium 8.3 L, Total Bilirubin 0.7, Direct Bilirubin 0.0, Conjugated Bilirubin 0.0, Indirect Bilirubin 0.7, Unconjugated Bilirubin 0.7, AST 181 H D, ALT 344 H*, Alkaline Phosphatase 108, Total Protein 5.6 L, Albumin 3.2 L D 09/18/21 07:37: Magnesium 2.0 09/18/21 07:37: WBC 8.0, RBC 3.61 L, Hgb 11.1 L, Hct 32.8 L, MCV 91.0, MCH 30.7, MCHC 33.7, RDW 16.2, Plt Count 172, MPV 8.9, Neut % (Auto) 81.2 H, Lymph % (Auto) 11.2, [place] % (Auto) 6.0, Eos % (Auto) 0.6, Baso % (Auto) 1.0, Neut # (Auto) 6.5, Lymph # (Auto) 0.9, [place] # (Auto) 0.5, Eos # (Auto) 0.1, Baso # (Auto) 0.1 09/18/21 07:37: Sodium 135 L, Potassium 3.6 D, Chloride 102, Carbon Dioxide 28, Anion Gap 8.6, BUN 17, Creatinine 0.80, Estimated Creat Clear 40, Estimated GFR 68, Est GFR ( Amer) 82, Glucose 110 H D, Calcium 8.1 L I & O for Last 24 hours: Intake & Output 09/15/21 09/16/21 09/17/21 09/18/21 11:59 11:59 11:59 11:59 Intake Total 224 / 224 840 / 840 120 / 120 Output Total 1200 / 1200 Balance -976 / -976 840 / 840 120 / 120 Weight 148 lb 2 oz 147 lb 7 oz 146 lb 8 oz 139 lb 12.8 oz - Constitutional no acute distress - *Routine HEENT Exam Head: Present: normocephalic Eye: Present: PERRL ENT: Present: mucous membranes moist - *Routine Neck Exam Present: supple. Absent: lymphadenopathy - *Routine Respiratory Exam Present: CTA bilaterally - *Routine Cardiovascular Exam Present: irregular rhythm - *Routine Abdominal Exam Present: soft, normoactive bowel sounds. Absent: tenderness - *Routine Extremities Exam Absent: cyanosis, clubbing, edema - *Routine Skin Exam Present: warm. Absent: rash - *Routine Neurological Exam Present: alert, oriented X3 Assessment and Plan (1) Abnormal EKG Status: Acute Category: Medical Code(s): R94.31 - Abnormal electrocardiogram [ECG] [EKG] (2) Atypical angina Status: Acute Category: Medical Code(s): I20.8 - Other forms of angina pectoris (3) Elevated troponin Status: Acute Category: Medical Code(s): R77.8 - Other specified abnormalities of plasma proteins (4) Non-STEMI (non-ST elevated myocardial infarction) Status: Acute Category: Medical Code(s): I21.4 - Non-ST elevation (NSTEMI) myocardial infarction (5) Shortness of breath Status: Acute Category: Medical Code(s): R06.02 - Shortness of breath (6) Hypertension Status: Chronic Qualifiers: Hypertension type: primary hypertension Qualified Code(s): I10 - Essential (primary) hypertension Category: Medical Code(s): I10 - Essential (primary) hypertension (7) Paroxysmal atrial fibrillation Status: Chronic Category: Medical Code(s): I48.0 - Paroxysmal atrial fibrillation - Assessment and plan all Dx Assessment and Plan for all problems:: rounded with dr funk all orders per dr funk cardiology consulted miralax,Colace and prune juice
[2021-09-18 11:34] VITALS: BMI 24.7
[2021-09-18 12:00] VITALS: BP 98/50; PULSE 100; PULSE 96; RESP 19; TEMP 36.3; O2SAT 93
--- NOTE | 2021-09-18 13:58 | PC.NURSE ---
new iv placed 20 in l forearm
[2021-09-18 16:00] VITALS: BP 100/59; PULSE 100; PULSE 96; RESP 18; TEMP 36.9; O2SAT 94
[2021-09-18 20:00] VITALS: BP 106/55; PULSE 78; PULSE 90; PULSE 95; RESP 17; TEMP 36.5; O2SAT 95; O2SAT 97
[2021-09-19] VITALS: BP 108/45; PULSE 110; PULSE 90; RESP 15; TEMP 36.8; O2SAT 91
--- NOTE | 2021-09-19 03:00 | PC.NURSE ---
Patient has had no acute events thus far. Patient remains in controlled A-fib on telemetry.
[2021-09-19 04:00] VITALS: BP 115/57; PULSE 108; PULSE 70; RESP 16; TEMP 36.4; O2SAT 93
[2021-09-19 05:00] VITALS: BMI 25.2
[2021-09-19 07:31] LABS: Basophils # 0.1 K/mm3 (0-0.2); Basophils % 0.9 % (0.1-2.0); Eosinophils # 0.1 K/mm3 (0.0-0.4); Eosinophils % 1.6 % (0.1-12.0); Hemoglobin 11.4 g/dL (12.2-16.2); Lymphocytes # 0.9 K/mm3 (0.7-4.5); Lymphocytes % 13.6 % (10-50); Mean Corpuscular HGB Conc 32.6 g/dL (31.8-35.4); Mean Corpuscular Hemoglobin 30.1 pg (27.0-31.2); Mean Corpuscular Volume 92.5 fl (81-99); Mean Platelet Volume 8.8 fl (7.4-10.4); Monocytes # 0.4 K/mm3 (0.1-1.0); Monocytes % 6.5 % (1.7-9.3); Neutrophils # 5.2 K/mm3 (1.8-7.8); Neutrophils % 77.5 % (37.0-80.0); Platelet Count 209 K/mm3 (142-424); Red Blood Count 3.78 M/mm3 (4.20-5.40); Red Cell Distribution Width 16.3 % (11.5-17.5); White Blood Count 6.7 K/mm3 (4.8-10.8)
[2021-09-19 07:36] LABS: Chloride 106 mmol/L (98-107); Potassium 4.4 mmoL/L (3.5-5.1); Sodium 135 mmol/L (136-145)
[2021-09-19 07:39] LABS: Anion Gap 9.4 mEq/L (5-15); Blood Urea Nitrogen 14 mg/dl (7-17); Calcium 8.8 mg/dl (8.4-10.2); Carbon Dioxide 24 mmol/L (22.0-30.0); Creatinine Clearance Estimated 40 mL/min (50-200); Estimated Glomerular Filt Rate 68 ml/min (>60); GFR (African American) 82 ML/MIN (>60); Glucose 117 mg/dl (74-100)
[2021-09-19 08:00] VITALS: BP 111/66; PULSE 115; RESP 18; TEMP 36.9; O2SAT 96
--- NOTE | 2021-09-19 09:21 | P.PN_ITS ---
Subjective Date: 09/19/21 Time: 09:21 Principal diagnosis: Non-ST elevation NE Interval history: 86-year-old white female in bed in no acute distress. No complaints. Telemetry shows atrial fibrillation with a rate around 100 bpm. Exam Vital signs and Labs for Last 24 Hours: Temp Pulse Resp BP Pulse Ox 98.4 F 115 H 18 111/66 96 09/19/21 08:00 09/19/21 08:00 09/19/21 08:00 09/19/21 08:00 09/19/21 08:00 Laboratory Results - last 24 hr 09/19/21 07:08: WBC 6.7, RBC 3.78 L, Hgb 11.4 L, Hct 35.0 L, MCV 92.5, MCH 30.1, MCHC 32.6, RDW 16.3, Plt Count 209, MPV 8.8, Neut % (Auto) 77.5, Lymph % (Auto) 13.6, [place] % (Auto) 6.5, Eos % (Auto) 1.6, Baso % (Auto) 0.9, Neut # (Auto) 5.2, Lymph # (Auto) 0.9, [place] # (Auto) 0.4, Eos # (Auto) 0.1, Baso # (Auto) 0.1 09/19/21 07:08: Sodium 135 L, Potassium 4.4 D, Chloride 106, Carbon Dioxide 24, Anion Gap 9.4, BUN 14, Creatinine 0.80, Estimated Creat Clear 40, Estimated GFR 68, Est GFR ( Amer) 82, Glucose 117 H, Calcium 8.8 I & O for Last 24 hours: Intake & Output 09/16/21 09/17/21 09/18/21 09/19/21 11:59 11:59 11:59 11:59 Intake Total 224 / 224 840 / 840 360 / 360 540 / 540 Output Total 1200 / 1200 400 / 400 Balance -976 / -976 840 / 840 360 / 360 140 / 140 Weight 147 lb 7 oz 146 lb 8 oz 139 lb 12.722 oz 142 lb 3.2 oz - Constitutional no acute distress - *Routine HEENT Exam Head: Present: normocephalic Eye: Present: EOMI, PERRL ENT: Present: mucous membranes moist - *Routine Neck Exam Present: supple. Absent: lymphadenopathy - *Routine Respiratory Exam Present: CTA bilaterally - *Routine Cardiovascular Exam Present: RRR, irregularly irregular - *Routine Abdominal Exam Present: soft, normoactive bowel sounds. Absent: tenderness - *Routine Extremities Exam Absent: cyanosis, clubbing, edema - *Routine Skin Exam Present: warm. Absent: rash - *Routine Neurological Exam Present: alert, oriented X3 Progress Note: A&P (1) Abnormal EKG Status: Acute (2) Atypical angina Status: Acute (3) Elevated troponin Status: Acute (4) Non-STEMI (non-ST elevated myocardial infarction) Status: Acute (5) Shortness of breath Status: Acute (6) Hypertension Status: Chronic (7) Paroxysmal atrial fibrillation Status: Chronic Assessment and Plan for All Diagnoses:: 1. Ischemic cardiomyopathy with EF 25%, patient is on bisoprolol at this time. Entresto has been stopped due to low blood pressure. Not a candidate for LifeVest. 2. CAD with non-STEMI this admission with subsequent stent placement to LAD, continue aspirin and Plavix. 3. Atrial fibrillation, recurrent with mild tachycardia, on bisoprolol 5 mg BID. Will add digoxin 0.125 mg daily. Amiodarone stopped since patient keeps having recurring A. fib. She continues on Eliquis for anticoagulation. 4. Pacemaker in situ, followed by Dr. Arrieta in [place] 5. Hypokalemia, resolved. Okay for discharge home from cardiology standpoint Home medication recommendations Bisoprolol 5 mg twice daily Digoxin 0.125 mg daily Aspirin 81 mg daily Plavix 75 mg daily Atorvastatin 40 mg daily Eliquis 5 mg twice daily Follow-up in our office in 1 week.
--- NOTE | 2021-09-19 09:31 | HMH.DCSUM ---
General - General Admission date:: 09/15/21 Discharge date: 09/19/21 HPI HPI: This is an 86-year-old white female who presented to the emergency department at [facility]. She went to the hospital because of shortness of breath. Most of her history comes from her son who stays with her. The patient and her son state that she became profoundly short of breath through the night last night which was very unusual for her. He states that it was severe and she was kind of gasping to breathe. The patient states that she did not feel well and exertion worsen her symptoms. Nothing was really helping to improve her shortness of breath. It was associated with a little bit of anxiety. She denies any lower extremity edema. She denies any chest pain or pressure. She denies any fever, chills, nausea, vomiting, diarrhea, PND or orthopnea. The patient was transported to [facility] where she was found to have an elevated troponin. Dr. Sanchez was contacted and the patient was transferred here to [facility] for further evaluation and treatment of her elevated troponin. Of note she does see Dr. Whipple in [facility] for her cardiology care. She has known paroxysmal atrial fibrillation and recently underwent cardioversion. The patient is in sinus rhythm. She does take Eliquis for long-term anticoagulation. She denies a history of coronary disease. above per cardiology service When seen on rounds this morning the patient was having no active chest pain or dyspnea. She relayed having a restless night. The cardiology service has made plans to take her to the [facility] for further evaluation later today Hospital Course Hospital Course: 86-year-old female transferred from [facility] with increased shortness of breath and elevated troponins per Dr. Sanchez. 09/15/21 cardiac catheterization: ANGIOGRAPHIC RESULTS The left main artery Normal The left anterior descending artery Has a proximal to mid vessel angiographically ambiguous area which appeared to be at least 50%. The remaining LAD is widely patent The circumflex artery Nondominant and has diffuse multiple 30 and 40% stenosis The right coronary artery Dominant with mild diffuse 10 to 20% luminal irregularities The FRY ventriculogram reveals Dilated ventricle with anterior apical akinesis estimate ejection fraction 25% The left ventricular end-diastolic pressure 30 mmHg IMPRESSION Coronary disease as described above accompanied by large anterior apical regional wall motion abnormality Severe coronary artery disease involving the proximal to mid LAD as described above with an MLA of 3.6 mm??? followed by successful stenting reducing the lesion to less than 10% Mild to moderate disease throughout the circumflex artery PLAN 1. Dual antiplatelet therapy combined with Eliquis for the next 30 days then discontinue aspirin and continue with Plavix and Eliquis 2. Patient may or may not be a candidate for LifeVest. Based on the ejection fraction she is a candidate however it is uncertain if she can adequately operate and deactivate a LifeVest based on her hard hearing. This will be deferred to the primary team 3. Standard therapy for systolic heart failure including Entresto and carvedilol 4. LDL less than 55 to be achieved with high intensity statin 5. Reassess ejection fraction in 90 days. If ejection fraction remains 35% or less recommend upgrading to an AICD permitted to trial Electronically signed by : José Sanchez MD Cardiology has seen and recommends: 1. Ischemic cardiomyopathy with EF 25%, patient is on bisoprolol at this time. Entresto has been stopped due to low blood pressure. Not a candidate for LifeVest. 2. CAD with non-STEMI this admission with subsequent stent placement to LAD, continue aspirin and Plavix. 3. Atrial fibrillation, recurrent with mild tachycardia, on bisoprolol 5 mg BID. Will add digo
--- NOTE | 2021-09-19 09:59 | HMH.OTEV ---
OT Inpatient Evaluation Rehab OT IP Evaluation Start: 09/19/21 09:16 Freq: ONCE Status: Complete Protocol: Document 09/19/21 09:53 [facility] (Rec: 09/19/21 09:59 [facility] [id number]) Rehab OT IP Assessment Subjective History Pt oriented x 3 on arrival. Pt agreeable to engage in therapy evaluation. Pt admitted on 09/15/21 due to chest pain. Prior to being in the hospital she lived at home with her son. Pt claims she was independent with all ADLs such as feeding, bathing, and dressing. However, her son completed cooking, cleaning, laundry, etc (IADLs) . Son reports she was able to complete minimal cleaning. Pt does have a rolling walker and cane at home, but does not always use them during ambulation. Subjective I am ready to go home. Pt resting in bed on arrival. Pt completed bed mobility with sba and went from supine to sitting at eob. Pt stood from eob with sba. Pt engaged in functional mobility transfer of ~30 feet to chair with sba. Pt sat down in chair with sba. Pt completed lower body dressing by donning and doffing socks with sba. Pt left sitting in chair; son present. Pt had call light and all other needs in reach. Objective Patient Orientation Person,Place,Birthday Upper Extremity Gross ROM WFL Bed Mobility bed mobility-scooting,bed mobility - supine/sit,bed mobility - rolling Assist Level Supervision/Stand by Transfer Training Sit/Stand Transfer Assist Level Supervision/Stand by Chair Transfer Ability Supervision/Stand by Chair Transfer Technique Sit to/from Ambulatory Chair Transfer Assistive Devices None Lower Body Dressing Ability Standby Assistance Rehab OT IP prob,goals,plan Problems Date of Evaluation: 09/19/21 Rehab Potential Rehab Potential [facility]
--- NOTE | 2021-09-19 10:07 | HMH.PTEV ---
Physical Therapy Evaluation Rehab PT IP Evaluation Start: 09/19/21 09:14 Freq: .once Status: Active Protocol: Document 09/19/21 10:04 [facility] (Rec: 09/19/21 10:06 [facility] [id number]) Subjective/History History History 86 yowf adm to [facility] with NSTEMI and general weaknes. She reports she lives with her son , 5-6 steps to enter the home, and she uses a cane or walker for ambulation as bneeded at baseline. Subjective Subjective Pt reports she feels much better today and has no c/o currently. Rehab PT IP Eval Objective Appearance Patient Behavior Appropriate Patient Orientation Person,Place,Time Difficulty following instructions none Speech Pattern Clear Ambulation Patient Able to Ambulate Yes Ambulation Observation IP General Gait Pattern Observation Shuffling Step Ambulation Distance (feet) 40 Ambulation Assistive Device None Ambulation Ability Supervision/Stand by Balance Ability to Arise Able, uses arms to help Sitting Balance Steady, safe Standing Balance Steady, wide stance Dynamic Sitting Balance Ability Good Dynamic Standing Balance Ability Fair Transfers Bed Transfer Ability Independent Chair Transfer Ability Supervision/Stand by Sit to Stand Bed Transfer Ability Supervision/Stand by Sit to Stand Chair Transfer Ability Supervision/Stand by ROM All Extremities PT ROM Status WFL MMT All Extremities PT MMT WFL Rehab PT IP prob,goals,plan Problems Date of Evaluation: 09/19/21 Discharge Plan PT Discharge Plan Pt appears to be at baseline for all mobility at this time and is appropriate to return home once medically stable. G -code Required No Eval Complexity Eval Charge Codes 92186 - Moderate Complexity PHYSICIAN CERTIFICATION: I certify the specified therapy services for Marita Covarrubias are required, authorized, and reviewed every 30 days.
--- NOTE | 2021-09-19 10:29 | HMH.PHACLD ---
Marita Covarrubias has received discharge medication counseling on the following medications: -BISOPROLOL (DAILY, WATCH FOR DIZZINESS, LIGHTHEADEDNESS) -ASPIRIN (DAILY, TAKE WITH FOOD, WATCH FOR SIGNS/SYMPTOMS OF BLEEDING/BRUISING) -ELIQUIS (TWICE DAILY, TAKE WITH FOOD, WATCH FOR SIGNS AND SYMPTOMS OF BLEEDING/BRUISING, BE SEEN IF YOU BUMP HEAD) -ATORVASTATIN (AT BEDTIME, WATCH FOR MUSCLE PAINS) -DIGOXIN (DAILY, ADES INCLUDE RASH, HEADACHE, LIGHTHEADEDNESS) -STOP TAKING METOPROLOL, AMIODARONE, AND SIMVASTATIN
[2021-09-19 10:49] VITALS: PULSE 115
--- NOTE | 2021-09-20 16:45 | CARE MANAGER ---
Spoke with sonMatthew on discharge phone interview he states that patient is doing well and has been to see her life scientists today. No issues noted.
== END 2021-09-19 11:17 | disposition home or self-care (01) | DRG 246 ==
PROVIDERS: Internal Medicine; Nurse Practitioner Family; Physician Assistant; Admitting Provider Emergency Medicine; PCP Emergency Medicine; Visit Provider Emergency Medicine
DX: I21.4 Non-ST elevation (NSTEMI) myocardial infarction (principal); I50.23 Acute on chronic systolic (congestive) heart failure; Z20.822 Contact with and (suspected) exposure to COVID-19; I25.119 Atherosclerotic heart disease of native coronary artery with unspecified angina pectoris; I48.0 Paroxysmal atrial fibrillation; E87.6 Hypokalemia; Z95.0 Presence of cardiac pacemaker; I25.5 Ischemic cardiomyopathy; I11.0 Hypertensive heart disease with heart failure
CPT/HCPCS: 36415; 71045; 80048; 80061; 80076; 83735; 84484; 85007; 85025; 85347; 92941; 93005; 93306; 93458; 94760; 94761; 97162; 97166; 99152; 99153; C1725; C1769; C1874; C9606; C9803; J1644; J2405; Q9967; U0003; U0005